=== PATIENT | female | born 1995 | race Caucasian/White ===

== ENCOUNTER 2018-08-24 16:44 | Emergency (ER) | payer SELFPAY ==
[~2018-08-24] VITALS: Ht 162.6 cm; Wt 79.1 kg
[2018-08-24 17:24] VITALS: BP 120/72
[2018-08-24] MEDS ORDERED: SERT50TA12 PO (17:34)
[2018-08-24] MEDS ORDERED: ARIP5TAB8 PO (17:34)
== END 2018-08-24 18:04 | disposition left against medical advice (07) ==
LOC: EMS 16:46
DX: Z53.21 Procedure and treatment not carried out due to patient leaving prior to being seen by health care provider (principal)

== ENCOUNTER 2019-01-12 13:42 | Emergency (ER) | payer MEDICAID ==
[~2019-01-12] VITALS: Ht 170.2 cm; Wt 89.5 kg
[~2019-01-12 13:42] MED LIST: ARIP5TAB8 PO; SERT50TA12 PO
[2019-01-12 14:20] VITALS: BP 144/75
== END 2019-01-12 14:58 | disposition home or self-care (01) ==
LOC: EMS 13:42
DX: N89.8 Other specified noninflammatory disorders of vagina (principal); R03.0 Elevated blood-pressure reading, without diagnosis of hypertension; F31.9 Bipolar disorder, unspecified; F17.210 Nicotine dependence, cigarettes, uncomplicated; F12.90 Cannabis use, unspecified, uncomplicated

== ENCOUNTER 2019-04-25 11:47 | Emergency (ER) | payer MEDICAID ==
[~2019-04-25] VITALS: Ht 165.1 cm; Wt 94.5 kg
[2019-04-25 14:24] VITALS: BP 112/65
== END 2019-04-25 14:40 | disposition home or self-care (01) ==
LOC: EMS 11:49
DX: L60.0 Ingrowing nail (principal); F17.210 Nicotine dependence, cigarettes, uncomplicated; F12.90 Cannabis use, unspecified, uncomplicated; F31.9 Bipolar disorder, unspecified

== ENCOUNTER 2019-10-24 09:51 | Emergency (ER) | payer MEDICAID ==
[~2019-10-24] VITALS: Ht 165.1 cm; Wt 87.3 kg
[~2019-10-24 09:51] MED LIST changes: -SERT50TA12 PO
[2019-10-24] MEDS ORDERED: BUSP5TAB20 PO (10:01)
[2019-10-24 10:11] VITALS: BP 117/77
[2019-10-24] MEDS ORDERED: ACETAMINOPHEN 500 MG TABLET PO ONE (10:30)
[2019-10-24] MEDS ORDERED: MECLIZINE HCL 25 MG TABLET PO ONE (10:30)
[2019-10-24] MEDS ORDERED: GuaiFENesin/D-METHORPHAN [SUGAR-FREE] 200-20MG/10 ML SYRUP UDCUP PO ONE (10:30)
== END 2019-10-24 10:37 | disposition home or self-care (01) ==
LOC: EMS 09:51
DX: J02.8 Acute pharyngitis due to other specified organisms (principal); R42 Dizziness and giddiness; F31.9 Bipolar disorder, unspecified; F17.210 Nicotine dependence, cigarettes, uncomplicated; F12.90 Cannabis use, unspecified, uncomplicated
CPT/HCPCS: 99406

== ENCOUNTER 2019-12-07 15:41 | Emergency (ER) | payer MEDICAID ==
[~2019-12-07] VITALS: Ht 170.2 cm; Wt 81.8 kg
[~2019-12-07 15:41] MED LIST changes: +BUSP5TAB20 PO
[2019-12-07 15:49] VITALS: BP 114/83
== END 2019-12-07 17:50 | disposition home or self-care (01) ==
LOC: EMS 15:45
DX: J34.89 Other specified disorders of nose and nasal sinuses (principal); F17.210 Nicotine dependence, cigarettes, uncomplicated; F12.90 Cannabis use, unspecified, uncomplicated; F31.9 Bipolar disorder, unspecified; Z90.89 Acquired absence of other organs

== ENCOUNTER 2020-03-24 14:29 | Emergency (ER) | payer MEDICAID ==
[~2020-03-24] VITALS: Ht 165.1 cm; Wt 64.5 kg
[2020-03-24] MEDS ORDERED: ARIP1064 IM (14:41)
[2020-03-24] MEDS ORDERED: KETOROLAC TROMETHAMINE 30 MG/ML VIAL IM ONE (16:15)
[2020-03-24 16:35] VITALS: BP 123/76
== END 2020-03-24 16:43 | disposition home or self-care (01) ==
LOC: EMS 14:32
DX: S29.012A Strain of muscle and tendon of back wall of thorax, initial encounter (principal); F17.210 Nicotine dependence, cigarettes, uncomplicated; F31.9 Bipolar disorder, unspecified; E78.00 Pure hypercholesterolemia, unspecified; X58.XXXA Exposure to other specified factors, initial encounter; Y93.89 Activity, other specified; Y92.89 Other specified places as the place of occurrence of the external cause; Y99.8 Other external cause status
CPT/HCPCS: 96372; 99283; 99406; J1885

== ENCOUNTER 2020-09-08 19:42 | Emergency (ER) | payer BC, MEDICAID ==
[~2020-09-08] VITALS: Ht 165.1 cm; Wt 97.3 kg
[~2020-09-08 19:42] MED LIST changes: +ARIP1064 IM; -ARIP5TAB8 PO; -BUSP5TAB20 PO
[2020-09-08] MEDS ORDERED: CefTRIAXone SODIUM 1 GM/VIAL IM ONE (20:45)
[2020-09-08] MEDS ORDERED: LIDOCAINE/PF 1% 2 ML VIAL IM ONE (20:45)
[2020-09-08] MEDS ORDERED: AZITHROMYCIN 500 MG TABLET PO ONE (20:45)
[2020-09-08 21:15] VITALS: BP 110/67
[2020-09-08] MEDS ORDERED: MetroNIDAZOLE 500 MG TABLET PO ONE (21:15)
== END 2020-09-08 21:30 | disposition home or self-care (01) ==
LOC: EMS 19:42
DX: M26.601 Right temporomandibular joint disorder, unspecified (principal); N76.0 Acute vaginitis; E78.00 Pure hypercholesterolemia, unspecified; F31.9 Bipolar disorder, unspecified; F17.210 Nicotine dependence, cigarettes, uncomplicated; Z90.89 Acquired absence of other organs
CPT/HCPCS: 81025; 87210; 87491; 87591; 96372; 99283; A9575; J0696; J3490